=== PATIENT | male | born 1990 | race Caucasian/White ===

== ENCOUNTER 2017-05-22 09:13 | Emergency (ER) | payer BC, OTHER ==
[~2017-05-22] VITALS: Ht 175.3 cm; Wt 65.1 kg
[2017-05-22] MEDS ORDERED: TYLENOL WITH C1 EACH PO (11:26)
[2017-05-22 11:46] VITALS: BP 128/74
== END 2017-05-22 11:52 | disposition home or self-care (01) ==
LOC: EME 09:13
DX: S09.90XA Unspecified injury of head, initial encounter (principal); S13.9XXA Sprain of joints and ligaments of unspecified parts of neck, initial encounter; V47.0XXA Car driver injured in collision with fixed or stationary object in nontraffic accident, initial encounter; Y92.410 Unspecified street and highway as the place of occurrence of the external cause; Z87.891 Personal history of nicotine dependence
CPT/HCPCS: 70450; 71046; 72125; 99281; 99284